=== PATIENT | male | born 1960 | race Caucasian/White ===

== ENCOUNTER 2024-05-27 22:55 | Emergency (ER) | payer OTHER, MEDICAID ==
[~2024-05-27] VITALS: Ht 182.9 cm; Wt 127.0 kg
[2024-05-27 23:09] VITALS: BP_SYST 164; PULSE 102; RESP 20; TEMP 98; O2SAT 96
[2024-05-27] MEDS: HYDROcodone/ACETAMIN 10-325 MG TAB PO ONE (23:40)
[2024-05-28] MEDS ORDERED: TRAM50TA2 PO (00:15)
[2024-05-28 07:09] VITALS: BP_SYST 135; PULSE 80; RESP 14; TEMP 98.5; O2SAT 96
== END 2024-05-28 07:09 | disposition home or self-care (01) ==
LOC: SED 22:55
DX: S02.40CA Maxillary fracture, right side, initial encounter for closed fracture (principal); R04.0 Epistaxis; I10 Essential (primary) hypertension; J44.9 Chronic obstructive pulmonary disease, unspecified; E78.5 Hyperlipidemia, unspecified; Z90.49 Acquired absence of other specified parts of digestive tract; Z90.89 Acquired absence of other organs; Z88.8 Allergy status to other drugs, medicaments and biological substances; Z79.899 Other long term (current) drug therapy; Y04.0XXA Assault by unarmed brawl or fight, initial encounter; Y93.89 Activity, other specified; Y92.89 Other specified places as the place of occurrence of the external cause; Y99.8 Other external cause status
CPT/HCPCS: 70486; 99285